=== PATIENT | male | born 1960 | race Hispanic/Latino ===

== ENCOUNTER 2017-06-02 22:16 | Emergency (ER) | payer OTHER, BC ==
[2017-06-02 22:20] VITALS: BP 112/69; PULSE 67; RESP 20; TEMP 98.2; O2SAT 97
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
== END 2017-06-03 00:24 | disposition home or self-care (01) ==
LOC: C.ER 22:16
DX: S73.101A Unspecified sprain of right hip, initial encounter (principal); S70.01XA Contusion of right hip, initial encounter; V19.40XA Pedal cycle driver injured in collision with unspecified motor vehicles in traffic accident, initial encounter